=== PATIENT | male | born 1945 | race African-American/Black ===

== ENCOUNTER 2020-03-24 12:05 | Day surgery (SDC) | payer MEDICARE ==
[2020-03-23 14:03] VITALS: BP 169/76
[~2020-03-24] VITALS: Ht 165.1 cm; Wt 77.7 kg
[~2020-03-24 12:05] MED LIST: AEC81 PO; ATOR-2 PO; DULO30CA52 PO; GABA-529 PO; LISI-613 PO; METO25TA6 PO; PRED10TA3 PO
[2020-03-24] MEDS ORDERED: LACTATED RINGERS 1000ML 1,000 ML IV ONE (12:09)
[2020-03-24 12:15] VITALS: BP 155/79
[2020-03-24] MEDS ORDERED: LIDOCAINE HCL 1% 20 ML VIAL ONE (13:03)
[2020-03-24] MEDS ORDERED: BUPIVACAINE/PF 0.5% 30ML VIAL ONE (13:03)
[2020-03-24] MEDS ORDERED: DEXAMETHASONE SOD PHOSPHATE 4 MG/ML 1ML VIAL ONE (13:03)
[2020-03-24] MEDS ORDERED: SODIUM CHLORIDE 0.9% 10 ML VIAL ONE (13:04)
[2020-03-24] MEDS ORDERED: IOPAMIDOL 10 ML VIAL ONE (13:25)
[2020-03-24] MEDS ORDERED: GLYCOPYRROLATE 1 MG/5 ML SYRINGE ONE (14:01)
--- NOTE | 2020-03-24 14:02 | NUR ---
PROCEDURE TRANSFERRED TO OR VIA STRETCHER. AWAKE IN NO ACUTE DISTRESS.
[2020-03-24 14:30] VITALS: BP 123/72
--- NOTE | 2020-03-24 14:30 | NUR ---
Pt received Pt received from OR via stretcher accompanied by RADHA Slater. Pt awake and alert. No anesthesia/sedation was given. Pt has a bandaid to lower back. Dry and intact. Good pedal pulses felt; able to move lower extremities without difficulty. Denies any pain or discomfort. Call james left within reach.
[2020-03-24 14:45] VITALS: BP 129/78
[2020-03-24 15:00] VITALS: BP 126/77
[2020-03-24 15:15] VITALS: BP 122/78
--- NOTE | 2020-03-24 15:20 | NUR ---
D/C Pt prepared for discharge. Bandaid remains intact. No pain voiced. Written discharge instructions given with info regarding f/u appointment. Verbalized understanding. Pt was then taken to private vehicle via w/c.
== END 2020-03-24 15:20 | disposition home or self-care (01) ==
LOC: DAH 12:05
PROVIDERS: ATTEND Family Medicine Sports Medicine
DX: M51.16 Intervertebral disc disorders with radiculopathy, lumbar region (principal); Z20.828 Contact with and (suspected) exposure to other viral communicable diseases; M47.26 Other spondylosis with radiculopathy, lumbar region; M48.061 Spinal stenosis, lumbar region without neurogenic claudication; I10 Essential (primary) hypertension; F17.210 Nicotine dependence, cigarettes, uncomplicated; I25.2 Old myocardial infarction; Z95.5 Presence of coronary angioplasty implant and graft; Z80.1 Family history of malignant neoplasm of trachea, bronchus and lung; Z79.899 Other long term (current) drug therapy; Z79.82 Long term (current) use of aspirin
CPT/HCPCS: 62323; 93005; A4215 ×2; A4221; A4222; A4223; A4663; A6260; C9803; J1100; J7120; Q9966; U0003; 62320; 77003; J3490